=== PATIENT | female | born 2000 | race Caucasian/White ===

== ENCOUNTER → 2019-12-22 12:00 | Outpatient (CLI) | payer MEDICAID, SELFPAY ==
[2019-12-22 11:28] VITALS: BMI 26.2
[2019-12-22 12:33] LABS: Absolute Lymphocyte Count 1.17 X10^3/uL (0.83-4.51); Basophil# 0.02 X10^3/uL; Basophil% 0.2 % (0-1); Eosinophil# 0.07 X10^3/uL; Eosinophils% 0.8 % (0-5); Hematocrit 38.6 % (37-47); Lymphocyte # 1.17 X10^3/ul (4.0); Lymphocyte % 13.4 % (19-41); Mean Corp Hgb Conc 33.7 g/dL (32-36); Mean Corpuscular Volume 95.1 fL (81-99); Mean Platelet Vol. 9.8 fl (6.2-12.0); Monocyte# 0.48 X10^3/uL; Monocyte% 5.5 % (0-10); NRBC Flagged by Analyzer 0 % (0-5); Neutrophil # 6.95 X10^3/uL (2.7-7.7); Neutrophil % 79.9 % (47-70); Platelet Count 279 K/mm3 (150-450); RBC Distribution Width CV 11.9 % (11.6-14.6); RBC Distribution Width SD 41.1 fl (35.1-43.9); Red Blood Count 4.06 M/mm3 (4.2-5.4); White Blood Count 8.7 K/mm3 (4.4-11.0)
[2019-12-22 12:54] LABS: Amphetamine Urine VISTA NEGATIVE (<1000 ng/mL); Barbiturate Urine VISTA NEGATIVE (< 200 ng/mL); Benzodiazepine Urine VISTA NEGATIVE (< 200 ng/mL); Cocaine Urine VISTA NEGATIVE (< 300 ng/mL); Ecstacy Urine VISTA NEGATIVE (< 500 ng/mL); Methadone Urine VISTA NEGATIVE (< 300 ng/mL); PCP Urine VISTA NEGATIVE (< 25 ng/mL); THC Urine VISTA NEGATIVE (< 50 ng/mL); Vista UDS pH Range 7
[2019-12-22 13:44] LABS: HIV - WCH Non-Reactive (Nonreactive); Hepatitis B Surface Antigen Non-Reactive (Nonreactive); Hepatitis C Antibody Non-Reactive (Nonreactive); Rubella IgG 104.6 IU/mL
[2019-12-22 14:08] LABS: Chlamydia Trachomatis by PCR Negative (Negative); Neisserai gonorrhoeae by PCR Negative (Negative); Probe Check PASS; Sample Adequacy Control PASS; Specimen Processing Control PASS
[2019-12-24 02:04] LABS: Rapid Plasmin Reagin (RPR) NONREACTIVE (NONREACTIVE)
[2019-12-24 20:07] LABS: Chlamydia By Nucleic Acid AMP Negative (Negative)
[2019-12-24 20:40] LABS: Gonococcus By Nucleic Acid AMP Negative (Negative)
== END ==
PROVIDERS: PCP Family Medicine; Referring Provider Obstetrics & Gynecology; Visit Provider Obstetrics & Gynecology
DX: Z34.90 Encounter for supervision of normal pregnancy, unspecified, unspecified trimester (principal)
CPT/HCPCS: 36415; 80307; 85025; 86592; 86703; 86762; 86803; 86850; 86900; 86901; 87086; 87088; 87340; 87491; 87591

== ENCOUNTER → 2020-04-07 11:30 | Outpatient (CLI) | payer OTHER, MEDICAID, SELFPAY ==
[2020-04-07 11:27] VITALS: BMI 31.3
[2020-04-07 11:46] LABS: Absolute Lymphocyte Count 1.15 X10^3/uL (0.83-4.51); Absolute Neutrophil Count 8.6 X10^3/uL (2.0-7.7); Basophil# 0.03 X10^3/uL; Basophil% 0.3 % (0-1); Eosinophil# 0.08 X10^3/uL; Eosinophils% 0.8 % (0-5); Hematocrit 36.9 % (37-47); Hemoglobin 12.2 g/dL (12.0-15.0); Lymphocyte # 1.15 X10^3/ul (4.0); Mean Corp Hgb Conc 33.1 g/dL (32-36); Mean Corpuscular Hgb 32.4 pg (27.0-32.0); Mean Corpuscular Volume 97.9 fL (81-99); Mean Platelet Vol. 9.7 fl (6.2-12.0); Monocyte# 0.57 X10^3/uL; Monocyte% 5.4 % (0-10); NRBC Flagged by Analyzer 0 % (0-5); Neutrophil # 8.59 X10^3/uL (2.7-7.7); Neutrophil % 81.9 % (47-70); Platelet Count 259 K/mm3 (150-450); RBC Distribution Width CV 12.3 % (11.6-14.6); RBC Distribution Width SD 44.6 fl (35.1-43.9); Red Blood Count 3.77 M/mm3 (4.2-5.4); White Blood Count 10.5 K/mm3 (4.4-11.0)
[2020-04-07 12:18] LABS: Glucose Challenge Gest 1H 50g 97 mg/dL (70-140)
== END ==
PROVIDERS: PCP Family Medicine; Referring Provider Obstetrics & Gynecology; Visit Provider Obstetrics & Gynecology
DX: Z34.00 Encounter for supervision of normal first pregnancy, unspecified trimester (principal)
CPT/HCPCS: 36415; 82950; 85025

== ENCOUNTER → 2020-06-02 16:24 | Outpatient (CLI) | payer OTHER, MEDICAID, SELFPAY ==
[2020-06-02 14:44] VITALS: BMI 33.3
== END ==
PROVIDERS: PCP Family Medicine; Visit Provider Obstetrics & Gynecology
DX: Z34.00 Encounter for supervision of normal first pregnancy, unspecified trimester (principal)
CPT/HCPCS: 87081

== ENCOUNTER 2020-07-01 12:55 | Inpatient (IN) | payer OTHER, MEDICAID, SELFPAY ==
[2020-06-30 10:57] VITALS: BMI 34.7
[2020-07-01] VITALS (47 sets, daily range): BP systolic 96–151; BP diastolic 58–93; PULSE 80–126; RESP 16–18; TEMP 36.4–37.6; O2SAT 93–100; BMI 34.9
[2020-07-01] MEDS: Lactated Ringers 1,000 ML 50 ML IV (13:10)
[2020-07-01] MEDS: Lactated Ringers 500 ML 999 ML IV ×3 (13:15→21:39)
[2020-07-01 13:22] LABS: Absolute Lymphocyte Count 0.96 X10^3/uL (0.83-4.51); Absolute Neutrophil Count 16.4 X10^3/uL (2.0-7.7); Basophil# 0.05 X10^3/uL; Basophil% 0.3 % (0-1); Eosinophil# 0.01 X10^3/uL; Eosinophils% 0.1 % (0-5); Hematocrit 39.6 % (37-47); Hemoglobin 13.5 g/dL (12.0-15.0); Lymphocyte # 0.96 X10^3/ul (4.0); Lymphocyte % 5.3 % (19-41); Mean Corp Hgb Conc 34.1 g/dL (32-36); Mean Corpuscular Hgb 32.7 pg (27.0-32.0); Mean Corpuscular Volume 95.9 fL (81-99); Mean Platelet Vol. 10.9 fl (6.2-12.0); Monocyte# 0.71 X10^3/uL; Monocyte% 3.9 % (0-10); NRBC Flagged by Analyzer 0 % (0-5); Neutrophil # 16.44 X10^3/uL (2.7-7.7); Neutrophil % 89.9 % (47-70); Platelet Count 222 K/mm3 (150-450); RBC Distribution Width CV 12.9 % (11.6-14.6); RBC Distribution Width SD 44.4 fl (35.1-43.9); Red Blood Count 4.13 M/mm3 (4.2-5.4); White Blood Count 18.3 K/mm3 (4.4-11.0)
[2020-07-01] MEDS: fentaNYL-bupivacaine (epidural) 100 ML BAG EPIDURAL ×2 (14:55→19:57)
[2020-07-01] MEDS: Lactated Ringers 1,000 ML 200 ML IV (17:57)
--- NOTE | 2020-07-01 21:03 | HP.PCM_ITS ---
- Problem List (1) 35 weeks gestation of Status: Acute Comment: electronic covid test ordered 05/27/20 (scheduled or 06/23/20 at 1400) (2) History of tetanus, diphtheria, and acellular pertussis booster vaccination (Tdap) Status: Acute Comment: 04/07/20 (3) Marijuana use Status: Acute Comment: encouraged cessation, needs random tox(neg 12/21) (4) Status: Acute Qualifiers: Weeks of gestation: 39 weeks Qualified Code(s): Z3A.39 - 39 weeks gestation of Comment: genetic, carrier neg , and ntd screening discussed, low risk genetics, anatomy nl (5) Supervision of normal first Status: Acute Qualifiers: Trimester: third trimester Qualified Code(s): Z34.03 - Encounter for supervision of normal first , third trimester Comment: PRR RYAN: 06/26/[birth year] boy Jony F[facility]: [facility]) History and Physical Date of Admission: 07/01/20 Intake Vital Signs 06/30/20 Height 5 ft 7 in 06/30/20 Weight: 222 lb 06/30/20 BMI 34.7 06/30/20 BP 136/84 H Intake Visit Reasons: 40WK OB Iron Carrier Required: No Is patient in pain?: No Allergies No Known Allergies Allergy (Verified 06/30/20 10:57) Medications vitamin#30 30 mg iron-10 mg iron-folic acid 1 mg-omg3 capsule cap PO 12/22/19 [History Confirmed 06/30/20] Last Menstral Period: 09/27/19 Zika: Zika virus screening: Negative : No PFSH PFSH Medical History No significant medical problems (Acute) Surgical History No significant past surgical history (Acute) Family History Grandmother Breast cancer Social History (Updated 06/30/20 @ 11:[address] Heaven Will MD) household members: family housing: house current occupational status: employed current occupation: [employer] pets and animals: Yes Smoking Status: Never smoker second hand exposure: No alcohol intake: current substance use type: marijuana seatbelt use: always do you feel safe at home: Yes additional social history: Fiance: Max- lawn care Pregancy History 1 Elective abortions Hx Para Spontaneous abortions Hx # Term Pregnancies Ectopic pregnancies Hx # Pregnancies Multiple births # of living children HPI 40WK OB: Details: VALERIANO GUERRERO is a 19 year old @ 40w5d presents IAL 3 cm cervical change, regular ctx, painful. OB Visit RYAN Calculator Estimated Delivery Date Method Current WG Current Estimate 06/26/20 Ultrasound #1 40w 4d Other Estimates 07/03/20 LMP (Certain) 39w 4d Expected Delivery Route/Plan iol 41 Labor Preferences- CB/BF classes: encouraged labor support person: Maicol labor intervention preferences: open to standard interventions pain management options preferred: epidural cut cord/dad catch: cord : yes PP control planned: NFP discussed possible routes of delivery and associated risks: [] special requests: [] Specific Issue/Plans flu vaccine: given tdap vaccine: given rhogam: na LARC form signed: 04/21 movement and labor precautions reviewed. Problem list reviewed and updated with the most current plan of care details and appropriate orders placed. Relevant counseling for the gestational age provided. Continue routine care and follow up unless otherwise noted in visit notes/problem list details Initial Weight: Not Recorded Date EGA Weight BP Urine Prot Glucose FHR FuHt Pres Dilation Effaced St Visit Note 01/20/20 17w 3d 176 lb 126/74 143 MH-No VB, LOF. Occa nausea-managing. Some constipation-discussed. US ordered. Reviewed genetic and PNL. 02/17/20 21w 3d 182 lb 100/72 Negative Negative 145 GP - no cramping or bleeding. Anatomy scan normal. Ovarian cyst noted. 03/17/20 25w 4d 192 lb 122/86 145 SM- no vb lof good fm nor egulqr ctx 04/07/20 28w 4d 200 lb 100/80 145 28 Sm- no vb lof good fm no regular ctx cbcgct tdap 04/21/20 30w 4d 204 lb 2 oz 132/80 Negative Negative 140 30 GP - no LOF, VB, DFM, ctx. LARC form signed. 05/05/20 32w 4d 206 lb 136/72 Trace Negative 138 32 MH-No VB, LOF. Good FM. Denies concerns 05/19/20 34w 4d 211 lb 8 oz 126/86 Negative Negative 145 34 Cephalic GP - no LOF, VB, DFM, ctx. Discussed labor preferences. 06/02/20 36w 4d 213 lb 110/80 145 36 Cephalic 1 SM- no vb lof good fm no regular ctx gbs today 06/09/20 37w 4d 220 lb 122/80 Negative Negative 145 37 Cephalic 1 SM- no vb lof good fm no regular ctx 06/17/20 38w 5d 219 lb 4 oz 122/88 Negative Negative 125 38 Cephalic GP - no LOF, VB, DFM, ctx. Denies complaints. 06/23/20 39w 4d 223 lb 6 oz 138/86 Negative Negative 135 39 Cephalic 1 50 -3 GP - no LOF, VB, DFM, ctx . Discussed scheduling IOL at next visit if no labor. 06/30/20 40w 4d 222 lb 136/84 Negative Negative 135 39 Cephalic 1 60 -2 SM- no vb lof good fm no regular ctx plan IOL ACOG First Trimester First Trimester: Desire for , Alcohol, Tobacco Cessation, Illicit/Recreational Drug/Substance Use, Intimate Partner Violence, Barriers to care, Unstable Housing, Communication Barriers, Environmental/Work Hazards, Anticipated Course of Care, Toxoplasmosis Precations, Use of Any medications, Sexual activity, Exercise, Dental Care, Sauna/Hot tub use, Seat Belt use, Childbirth classes/Hospital facilities, , Travel, Indications for US and Screening for Aneuploidy Diagnostics Diagnostics Diagnostics Glucose 1 Hr 50 gm 97 mg/dL (70-140) 04/07/20 Hgb 12.2 g/dL (12.0-15.0) 04/07/20 Hct 36.9 % (37-47) L 04/07/20 Details: HIV: Urine Culture: Sequential Screen: NIPT Screen: ROS Const Reports system reviewed and no additional complaints, except as docu Card Reports system reviewed and no additional complaints, except as docu Resp Reports system reviewed and no additional complaints, except as docu GI Reports system reviewed and no additional complaints, except as docu, Reports nausea Reports system reviewed and no additional complaints, except as docu Musc Reports system reviewed and no additional complaints, except as docu Exam Const General: cooperative, healthy appearing, comfortable, anxious HENMT Head: normal to inspection Nose: external nose normal Face and sinus: normal facial exam Neck Neck: normal visual inspection, full ROM, no lymphadenopathy Thyroid: thyroid normal Chest Chest palpation & inspection: normal inspection of the chest Resp Effort & Inspection: normal respiratory effort GI Inspection: normal to inspection Palpation: soft, other (gravid uterus) Other: vertex and appropriate size for gestational age Other: Cervical Exam: 380/-1 Extrem General: pedal edema Results POC Urinalysis 2 Dip (Clinic) Office Urine Glucose Negative Last Edit by Amanda Pereira on 06/30/20 11:01 Office Urine Protein Negative Last Edit by Amanda Pereira on 06/30/20 11:01 Assessment & Plan Problems 1. Z34.90 genetic, carrier neg , and ntd screening discussed, low risk genetics, anatomy nl 2. Marijuana use F12.90 encouraged cessation, needs random tox(neg 12/21) 3. Supervision of normal first Z34.00 PRR RYAN: 06/26/20 boy Jony Fiance: Maicol [facility] [place]) 4. History of tetanus, diphtheria, and acellular pertussis booster vaccination (Tdap) Z92.29 04/07/20 5. 35 weeks gestation of Z3A.35 electronic covid test ordered 05/27/20 (scheduled or 06/23/20 at 1400) Plan Patient presents IAL, plan management for , Pit PRN Pain management: plans epidural. GBS negative. Management of any complications: none I have reviewed the [facility] and made any clinically relevant updates. Orders Orders: POC Urinalysis 2 Dip (Clinic) Today Coding Level of Care Code Off vis,est,level 4 Diagnoses Z34.90 Marijuana use F12.90 Supervision of normal first Z34.00 History of tetanus, diphtheria, and acellular pertussis booster vaccination (Tdap) Z92.29 35 weeks gestation of Z3A.35
[2020-07-01] MEDS: Terbutaline 1 MG/ML Vial 0.25 MG SC (22:17)
--- NOTE | 2020-07-01 22:24 | PCM.PN.BLA ---
Progress Note fht recurrent late and variable decelerations, initially resolved with position changes, now recurring, still 6 cm after fluid bolus, oxygen, no pitocin able to be given, and persistent cat [facility] with [facility]. discussed with patient and she agrees. STROKE Vital Signs/Narrative: Vital Signs Temp Pulse BP Pulse Ox 07/01/20 22:20 98 100/58 L 07/01/20 22:18 97 107/58 L 07/01/20 22:12 98.4 F 85 100 07/01/20 22:11 97 120/59 L 07/01/20 21:31 98.6 F 07/01/20 21:30 93 136/75 H 07/01/20 21:24 97 137/72 H 07/01/20 21:19 104 H 151/93 H 07/01/20 21:15 93 144/92 H 07/01/20 21:09 86 128/93 H 07/01/20 21:07 108 H 98 07/01/20 21:04 96 139/80 H 07/01/20 21:02 95 100 07/01/20 20:57 95 136/77 H 99 07/01/20 20:40 99.7 F H 90 135/84 H 07/01/20 20:03 98.2 F 90 134/91 H 07/01/20 19:13 98.8 F 82 121/81 H 100
[2020-07-01] MEDS: Sodium Citrate/Citric Acid 30 ML UDC PO (22:26)
[2020-07-01] MEDS: Cefazolin 2 GM in 0.9% Normal Saline 100 ML IV (22:26)
--- NOTE | 2020-07-01 22:37 | OP.PCM_ITS ---
Problem List (1) 35 weeks gestation of Status: Acute Comment: electronic covid test ordered 05/27/20 (scheduled or 06/23/20 at 1400) (2) History of tetanus, diphtheria, and acellular pertussis booster vaccination (Tdap) Status: Acute Comment: 04/07/20 (3) Marijuana use Status: Acute Comment: encouraged cessation, needs random tox(neg 12/21) (4) Status: Acute Qualifiers: Weeks of gestation: 39 weeks Qualified Code(s): Z3A.39 - 39 weeks gestation of Comment: genetic, carrier neg , and ntd screening discussed, low risk genetics, anatomy nl (5) Supervision of normal first Status: Acute Qualifiers: Trimester: third trimester Qualified Code(s): Z34.03 - Encounter for supervision of normal first , third trimester Comment: PRR RYAN: 06/26/20 bryce Borges Fiance: Maicol ([place]) (6) Non-reassuring heart rate with late deceleration Status: Acute Delivery Classification: KASIE service desk director: Erika Alberto Type of Anesthesia:: Epidural Date of Procedure: 07/01/20 Pre-Operative Diagnosis: recurrent decels 6 cm Post-Operative Diagnosis: same Indications for : Nonreassuring Status Description of Procedure: 19-year-old at 40 weeks 6 days presents in active labor proceeded to 6 cm of dilation and developed recurrent variable and late decelerations. The initially resolved with fluid bolus and position changes but then recurred and after reevaluation and patient noted to be remote from delivery and still 6 cm with persistent category 2 tracing for over an hour no decision was made to proceed with a repeat low transverse . Epidural was dosed and found to be adequate. The patient was placed in the dorsal supine position with leftward tilt. Patient was prepped and draped in the normal sterile fashion. Pfannenstiel skin incision was made with the scalpel and carried through to the underlying layer of fascia with the scalpel. Fascia was nicked in the midline and the incision extended laterally. The rectus bellies were dissected off superiorly and inferiorly with out complication both sharply and bluntly. The peritoneum was entered digitally. The incision was stretched and a low transverse uterine incision was made with the scalpel. The infant's head was delivered atraumatically followed by the anterior and posterior shoulders without complication the rest of the infant delivered. The cord was clamped and cut and the infant was handed off to awaiting nurse. The placenta was delivered spontaneously immediately following and was noted to be intact and have a three- vessel cord. The uterus was exteriorized cleared of all clots and debris, and the incision was closed in a double layer closure using #1 Monocryl. The ovaries and fallopian tubes were noted to be within normal limits. The uterus was returned to the maternal abdomen and gutters were cleared of all clots and debris. The peritoneum was closed with 3-0 Monocryl in a running fashion. Gloves were changed prior to fascial closure. Fascia was closed with 0 PDS in a running fashion. Subcutaneous tissue was copiously irrigated and the skin was closed with 3-0 Monocryl in a subcuticular fashion. Mepilex dressing was applied without complication. Patient was taken to recovery in stable condition. It was discussed with the patient that based on the clinical information obtained during this encounter, combined with her history, at this time I would recommend vaginal or cesareans for future deliveries if further pregnancies are desired. Amniotic Membrane Rupture Type: Artificial Amniotic Fluid Description: Clear Placenta Disposition: [facility] Drain: Camacho to straight drain Cord Entanglement: None Esitmated Blood Loss (ml): 600 Infant Gender: Male Delayed cord clamping: Yes Antibiotic Given: Ancef 2 grams IV x1, Zithromax 500 mg/5 mL X1 Pt instructed on risks of surgery: Bleeding, Anesthesia Risks, Infection, Injury to surrounding structure(s) including bowel and bladder Complications: None - Admit VTE Documentation VTE Present on Admission: No VTE Mechan Device Prophylaxis: SCD's Multi Select Codes - Urinary/Genital Urinary/Genital CPT Codes: 26327 delivery+ Care([facility])
[2020-07-01] MEDS: Oxytocin 30 units/NS 500 ml 30 UNITS/500 ML IV.SOLN 167 UNITS IV (23:48)
[2020-07-02] VITALS (17 sets, daily range): BP systolic 95–125; BP diastolic 44–77; PULSE 80–100; RESP 14–18; TEMP 36.6–37.1; O2SAT 96–98
[2020-07-02] MEDS: Acetaminophen 500 MG Tablet 1000 MG PO ×5 (00:10→23:32)
[2020-07-02] MEDS: 0.9% Saline Lock 10 ML Syringe IV (00:10)
[2020-07-02] MEDS: Ketorolac 30 MG/ML Syringe IV ×2 (00:10→06:24)
[2020-07-02] MEDS: Lactated Ringers 1,000 ML 100 ML IV (02:54)
[2020-07-02 06:33] LABS: Hematocrit 33.9 % (37-47); Hemoglobin 11.1 g/dL (12.0-15.0); Mean Corp Hgb Conc 32.7 g/dL (32-36); Mean Corpuscular Hgb 32.6 pg (27.0-32.0); Mean Corpuscular Volume 99.4 fL (81-99); Mean Platelet Vol. 10.8 fl (6.2-12.0); Platelet Count 212 K/mm3 (150-450); RBC Distribution Width CV 12.9 % (11.6-14.6); RBC Distribution Width SD 46.7 fl (35.1-43.9); Red Blood Count 3.41 M/mm3 (4.2-5.4); White Blood Count 18.5 K/mm3 (4.4-11.0)
--- NOTE | 2020-07-02 07:23 | PCM.PN.OB ---
Patient Problems: Active and Suspected Problems (Last Reviewed 06/30/20 @ 10:57 by Amanda Pereira) Non-reassuring heart rate with late deceleration (Acute) 35 weeks gestation of (Acute) electronic covid test ordered 05/27/20 (scheduled or 06/23/20 at 1400) History of tetanus, diphtheria, and acellular pertussis booster vaccination (Tdap) (Acute) 04/07/20 Supervision of normal first (Acute) PRR RYAN: 06/26/20 boy Jony Fiance: Max ([place]) Marijuana use (Acute) encouraged cessation, needs random tox(neg 12/21) (Acute) genetic, carrier neg , and ntd screening discussed, low risk genetics, anatomy nl Subjective: Patient doing well without complaints. Tolerating PO. Ambulating and voiding without difficulty. feeding well. Denies chest pain, shortness of breath, calf pain/swelling, fevers, chills, lightheadedness. - Physical Exam Vitals/I&O's: Vital Signs Temp Pulse Resp BP Pulse Ox 98.8 F 83 16 114/49 L 96 07/02/20 05:40 07/02/20 05:40 07/02/20 05:40 07/02/20 05:40 07/02/20 06:14 Oxygen Delivery Method Room Air Weight: 222 lb 12.8 oz Body Mass Index (BMI) 34.9 Intake and Output for Last 24 Hours 06/30/20 07/01/20 07/02/20 23:59 23:59 23:59 Intake Total 3017.84 / 3017.84 955 / 955 Output Total 1400 / 1400 900 / 900 Balance 1617.84 / 1617.84 55 / 55 General: Alert, Oriented x3 Microbiology Past 72 Hours 07/01/20 11:30 Mucosa - Nose SARS-CoV-2 Antigen (Rapid) - Final Laboratory Results 07/01/20 13:10: WBC 18.3 H, RBC 4.13 L, Hgb 13.5, Hct 39.6, MCV 95.9, MCH 32.7 H, MCHC 34.1, RDW Std Deviation 44.4 H, RDW Coeff of Janay 12.9, Plt Count 222, MPV 10.9, Immature Gran % (Auto) 0.500, Neut % (Auto) 89.9 H, Lymph % (Auto) 5.3 L, Jones % (Auto) 3.9, Eos % (Auto) 0.1, Baso % (Auto) 0.3, Absolute Neuts (auto) 16.4 H, Absolute Lymphs (auto) 0.96, Nucleated RBC % 0 07/01/20 13:10: Blood Type A POSITIVE, Antibody Screen NEGATIVE 07/02/20 06:20: WBC 18.5 H, RBC 3.41 L, Hgb 11.1 L, Hct 33.9 L, MCV 99.4 H, MCH 32.6 H, MCHC 32.7, RDW Std Deviation 46.7 H, RDW Coeff of Janay 12.9, Plt Count 212, MPV 10.8 Current Medications Acetaminophen (Acetaminophen 500 Mg Tablet) 1,000 mg PO Q6 [facility] Last Admin: 07/02/20 06:24 Dose: 1,000 mg Documented by: Bisacodyl (Bisacodyl 10 Mg Suppository) 10 mg RC UD PRN PRN Reason: If no BM Diphenhydramine HCl (Diphenhydramine 25 Mg Capsule) 25 mg PO Q6H PRN PRN PRN Reason: ITCHING Stop: 07/02/20 23:40 Hydrocortisone (Hydrocortisone 2.5% Crm) 1 applic TOPICAL TID PRN PRN; Protocol PRN Reason: Discomfort Lactated Ringer's () 1,000 mls @ 100 mls/hr IV .Q10H [facility] Last Admin: 07/02/20 02:54 Dose: 100 mls/hr Documented by: Ketorolac Tromethamine (Ketorolac 30 Mg/Ml Syringe) 30 mg IV Q6H SEN Stop: 07/02/20 18:01 Last Admin: 07/02/20 06:24 Dose: 30 mg Documented by: Methylergonovine Maleate (Methylergonovine 0.2 Mg/Ml Ampul) 0.2 mg IM X1 PRN PRN Reason: Uterine Atony Nalbuphine HCl (Nalbuphine 10 Mg/Ml Ampul) 5 mg IV Q3H PRN PRN PRN Reason: ITCHING Stop: 07/02/20 23:40 Naloxone HCl (Naloxone 0.4 Mg/Ml Syringe) 0.02 mg IV Q1M PRN PRN Reason: RR <10 and pt unresponsive Naproxen (Naproxen 250 Mg Tablet) 500 mg PO Q8 SEN Ondansetron HCl (Ondansetron 4 Mg/2 Ml Vial) 4 mg IV Q4H PRN PRN PRN Reason: Nausea Oxycodone HCl (Oxycodone 5 Mg Tablet) 5 - 10 mg PO Q4H PRN PRN PRN Reason: Pain Score 4-10 Prochlorperazine Edisylate (Prochlorperazine 10 Mg/2 Ml Vial) 10 mg IV Q6H PRN PRN PRN Reason: NAUSEA Senna/Docusate Sodium (Senna/Docusate Sodium 1 Tablet) 0 tablet PO DAILY SEN Simethicone (Simethicone 80 Mg Tablet) 80 mg PO PCHS PRN PRN Reason: Indigestion/stomach pain Sodium Chloride (0.9% Saline Lock 10 Ml Syringe) 5 - 15 ml IV UD PRN PRN Reason: SALINE FLUSH Last Admin: 07/02/20 00:10 Dose: 10 ml Documented by: Medical Necessity - Tobacco Use Smoking Status: Former smoker Assessment/Plan All Active Problems (Last Reviewed 06/30/20 @ 10:57 by Amanda Pereira) Non-reassuring heart rate with late deceleration (Acute) 35 weeks gestation of (Acute) History of tetanus, diphtheria, and acellular pertussis booster vaccination (Tdap) (Acute) Supervision of normal first (Acute) Marijuana use (Acute) (Acute) s/p LTCS PPD # 1 1. routine post care 2. breast feeding- support given 3. rh positive 4. rubella immune
--- NOTE | 2020-07-02 07:27 | DCINST_ITS ---
Discharge Diet: No Restrictions Discharge Activity: May Not Drive - for 2 weeks, May not drive while taking narcotic pain medications., May Shower, May Take a Tub Bath - in 7 days May resume sexual activity in: 4-6 weeks Lifting Restrictions: 20 pounds Additional Activity Instructions:: Nothing in the vagina for 4-6 weeks. You may return to work/school in 6 weeks. Call your doctor if your incision/area has: Continuous Slow Oozing, Sudden Increased Bleeding, Increased Pain/ Swelling, Increased Redness, Foul Smelling Discharge Call your doctor if you observe: Fever of 101 or Higher, Using more than one pad per hour - for 2 hours Suture Line Care: Avoid Pulling/Pushing, Avoid Pinching/Bending Cleanse incision/area with: Keep Dressing Clean & Dry Additional Instructions: If you experience any of the following, contact your healthcare provider. * Bleeding that soaks a pad every hour for 2 hours * Fever 100.4 or higher * Unrelieved incision or abdominal pain * Swelling, redness, discharge or bleeding from your incision or episiotomy site * Your incision begins to separate * Problems urinating (including inability to urinate or burning while urinating). * Visual changes * Severe headache * Flu-like symptoms * Pain or redness in one of both of your breasts * Pain, warmth, tenderness or swelling in your legs, especially the calf area * Frequent nausea and vomiting * Symptoms of depression or anxiety If you experience any of the following, call 911 or go to the nearest Emergency Room. * Chest pain * Problems breathing * Seizure activity * Partial or complete paralysis of a body part, slurred speech, weakness or drooping of the face, or a sudden inability to walk or hold your balance Allergies/Adverse Reactions: Allergies No Known Allergies Allergy (Verified 07/01/20 08:50) Medications to take at Discharge vitamin#30 30 mg iron-10 mg iron-folic acid 1 mg-omg3 capsule 30 cap PO DAILY 12/22/19 Naproxen [Naprosyn] 250 - 500 mg PO Q8H PRN PRN #30 tab 07/02/20 Oxycodone HCl/Acetaminophen [Percocet 5-325] 1 - 2 tablet PO Q6H PRN PRN 7 Days #15 tablet 07/02/20 The following prescriptions were given: Naproxen [Naprosyn] 250 - 500 mg PO Q8H PRN PRN #30 tab PRN Reason: MILD PAIN Transmission Status: Pending to [facility] Oxycodone HCl/Acetaminophen [Percocet 5-325] 1 - 2 tablet PO Q6H PRN PRN 7 Days #15 tablet PRN Reason: Pain Transmission Status: Sent to [facility] Follow-Up: Call to make an appointment with your doctor for an incision check in 1-2 weeks. You will also need a 6 week post- follow up appointment. Test results from this visit will be discussed in further detail at your follow- up appointment, if applicable. Please Follow Up With: Heaven Will MD - Call to make an appointment for an incision check in 1-2 [phone] When: You will need a post- check in 6 weeks. Primary Care Physician: Kuldeep Ngo MD [Primary Care Provider] -
--- NOTE | 2020-07-02 09:57 | CASEMGMT ---
Addendum entered by Marva Laird 07/11/20 08:22: Meconium was negative. TAYO Villanueva Original Note: Social Work Assessment Labor and Delivery Unit Date/Time of referral: 07/02/20, 9:45am Referred by: Dr. Will Date/Time of Intervention: 07/02/20, 9:45am Reason for referral: History of substance use, marijuana prepregnancy, peds screening infant History obtained from: MOB and FOB Household composition: MOB, FOB and now baby Jony, MOB and FOB together 3 years. This is their first child and first child together. Patient's parent/guardian status: MOB and FOB not , MOB guardian Medical History: MOB, none significant. Baby: Born 07/01/20, 10:54pm, Apgars 8 and 9 at 1 and 5 minutes respectively, 3.365 kg Educational History: MOB finished high school, FOB almost finished senior year Financial Status: They state no financial concerns. FOB has his own [employer]. 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 Supplies: They have all needed supplies including car seat, crib, bassinet, clothing, diapers, bottles, access to formula if needed. MOB plans to breastfeed. Childcare/Caregivers: MOB's mother is able to help as needed. Transportation: They have a vehicle. Programs/Agencies involved: None Children's Services/Legal Issues: None Behavioral Health Issues: Mental Health, MOB and FOB deny any history of mental health difficulties. Substance abuse: FOB denies. MOB confirms did use marijuana but has not used since , plans to continue to abstain from marijuana use. Tox screen negative in November. MOB denies any other substance abuse. Meconium pending. Family/Social Stressors: None identified Support Systems: MOB's mother, FOB's brother and sister in law Depression and Anxiety/Shaken baby/Safe Sleeping: SW gave information on all of these topics and reviewed w/MOB and FOB. SW also provided list of resources in [facility], and number to Counseling Center with 24 hour hotline. Assessment: MOB and FOB open to speaking w/SW, appropriate. Baby sleeping in bassinet at time of assessment. No concerns at this time. Plan: Baby home w/MOB and FOB. SW will watch for results of meconium, otherwise no concerns at this time. TAYO Villanueva
[2020-07-02] MEDS: Senna/Docusate Sodium 1 Tablet PO (12:04)
[2020-07-02] MEDS: Ketorolac 10 MG Tablet PO ×2 (12:11→17:37)
[2020-07-02] MEDS: Naproxen 250 MG Tablet 500 MG PO (23:32)
[2020-07-03 02:00] VITALS: BP 120/71; PULSE 91; RESP 16; TEMP 37.1
[2020-07-03] MEDS: Naproxen 250 MG Tablet 500 MG PO (05:42)
[2020-07-03] MEDS: Acetaminophen 500 MG Tablet 1000 MG PO (05:43)
[2020-07-03 08:00] VITALS: BP 106/55; PULSE 72; RESP 16; TEMP 36.4
--- NOTE | 2020-07-03 08:43 | PN.OBGYN_ITS ---
Patient Problems: Active and Suspected Problems (Last Reviewed 06/30/20 @ 10:57 by Amanda Pereira) Non-reassuring heart rate with late deceleration (Acute) 35 weeks gestation of (Acute) electronic covid test ordered 05/27/20 (scheduled or 06/23/20 at 1400) History of tetanus, diphtheria, and acellular pertussis booster vaccination (Tdap) (Acute) 04/07/20 Supervision of normal first (Acute) PRR RYAN: 06/26/20 boy Jony Fiance: Maicol (erwin) Marijuana use (Acute) encouraged cessation, needs random tox(neg 12/21) (Acute) genetic, carrier neg , and ntd screening discussed, low risk genetics, anatomy nl Subjective: Patient doing well without complaints. Tolerating PO. Ambulating and voiding without difficulty. feeding well. Denies chest pain, shortness of breath, calf pain/swelling, fevers, chills, lightheadedness. - Physical Exam Vitals/I&O's: Vital Signs Temp Pulse Resp BP Pulse Ox 97.5 F L 72 16 106/55 L 98 07/03/20 08:00 07/03/20 08:00 07/03/20 08:00 07/03/20 08:00 07/02/20 09:57 Oxygen Delivery Method Room Air Weight: 222 lb 12.8 oz Body Mass Index (BMI) 34.9 Intake and Output for Last 24 Hours 07/01/20 07/02/20 07/03/20 23:59 23:59 23:59 Intake Total 3017.84 / 3017.84 1465 / 1465 Output Total 1400 / 1400 1125 / 1125 Balance 1617.84 / 1617.84 340 / 340 General: Alert, Oriented x3, Cooperative Microbiology Past 72 Hours 07/01/20 11:30 Mucosa - Nose SARS-CoV-2 Antigen (Rapid) - Final Current Medications Acetaminophen (Acetaminophen 500 Mg Tablet) 1,000 mg PO Q6 SEN Last Admin: 07/03/20 05:43 Dose: 1,000 mg Documented by: Bisacodyl (Bisacodyl 10 Mg Suppository) 10 mg RC UD PRN PRN Reason: If no BM Hydrocortisone (Hydrocortisone 2.5% Crm) 1 applic TOPICAL TID PRN PRN; Protocol PRN Reason: Discomfort Lactated Ringer's () 1,000 mls @ 100 mls/hr IV .Q10H [facility] Last Admin: 07/03/20 06:34 Dose: Not Given Documented by: Methylergonovine Maleate (Methylergonovine 0.2 Mg/Ml Ampul) 0.2 mg IM X1 PRN PRN Reason: Uterine Atony Naloxone HCl (Naloxone 0.4 Mg/Ml Syringe) 0.02 mg IV Q1M PRN PRN Reason: RR <10 and pt unresponsive Naproxen (Naproxen 250 Mg Tablet) 500 mg PO Q8 [facility] Last Admin: 07/03/20 05:42 Dose: 500 mg Documented by: Ondansetron HCl (Ondansetron 4 Mg/2 Ml Vial) 4 mg IV Q4H PRN PRN PRN Reason: Nausea Oxycodone HCl (Oxycodone 5 Mg Tablet) 5 - 10 mg PO Q4H PRN PRN PRN Reason: Pain Score 4-10 Prochlorperazine Edisylate (Prochlorperazine 10 Mg/2 Ml Vial) 10 mg IV Q6H PRN PRN PRN Reason: NAUSEA Senna/Docusate Sodium (Senna/Docusate Sodium 1 Tablet) 0 tablet PO DAILY [facility] Last Admin: 07/02/20 12:04 Dose: 2 tablet Documented by: Simethicone (Simethicone 80 Mg Tablet) 80 mg PO [facility]S PRN PRN Reason: Indigestion/stomach pain Sodium Chloride (0.9% Saline Lock 10 Ml Syringe) 5 - 15 ml IV UD PRN PRN Reason: SALINE FLUSH Last Admin: 07/02/20 00:10 Dose: 10 ml Documented by: Medical Necessity - Tobacco Use Smoking Status: Former smoker Assessment/Plan All Active Problems (Last Reviewed 06/30/20 @ 10:57 by Amanda Pereira) Non-reassuring heart rate with late deceleration (Acute) 35 weeks gestation of (Acute) History of tetanus, diphtheria, and acellular pertussis booster vaccination (Tdap) (Acute) Supervision of normal first (Acute) Marijuana use (Acute) (Acute) s/p LTCS PPD # 2 1. routine post care 2. breast feeding- support given 3. rh positive 4. rubella immune
== END 2020-07-03 11:10 | disposition home or self-care (01) | DRG 540 ==
LOC: WPOUT 13:01 → WP 13:43
PROVIDERS: Admitting Provider Obstetrics & Gynecology; PCP Family Medicine; Visit Provider Obstetrics & Gynecology
DX: O76 Abnormality in fetal heart rate and rhythm complicating labor and delivery (principal); Z37.0 Single live birth; Z3A.40 40 weeks gestation of pregnancy; O99.324 Drug use complicating childbirth; F12.90 Cannabis use, unspecified, uncomplicated; Z87.891 Personal history of nicotine dependence
CPT/HCPCS: 59025; 59050; 85025; 85027; 86850; 86900; 86901; 87426; 99218; 99251; J7120; A4216; G0378; G0463; J2405

== ENCOUNTER → 2021-11-30 | Outpatient (CLI) | payer MEDICAID, SELFPAY ==
[2021-11-30 16:06] LABS: Amphetamine Urine VISTA NEGATIVE (<1000 ng/mL); Barbiturate Urine VISTA NEGATIVE (< 200 ng/mL); Benzodiazepine Urine VISTA NEGATIVE (< 200 ng/mL); Cocaine Urine VISTA NEGATIVE (< 300 ng/mL); Ecstacy Urine VISTA NEGATIVE (< 500 ng/mL); Methadone Urine VISTA NEGATIVE (< 300 ng/mL); PCP Urine VISTA NEGATIVE (< 25 ng/mL); THC Urine VISTA NEGATIVE (< 50 ng/mL); Vista UDS pH Range 8
[2021-12-04 22:06] LABS: Chlamydia By Nucleic Acid AMP Negative (Negative)
[2021-12-05 13:35] LABS: Gonococcus By Nucleic Acid AMP Negative (Negative)
[2021-12-06 16:34] LABS: HPV Reflexed? NOT INDICATED
== END | disposition home or self-care (01) ==
LOC: LABSPEC 15:00
PROVIDERS: PCP Family Medicine; Referring Provider Obstetrics & Gynecology; Visit Provider Obstetrics & Gynecology
DX: Z34.91 Encounter for supervision of normal pregnancy, unspecified, first trimester (principal)
CPT/HCPCS: 80307; 87086; 87491; 87591; 88175; G0145

== ENCOUNTER → 2021-12-12 | Outpatient (CLI) | payer MEDICAID, SELFPAY ==
[2021-12-12 14:06] LABS: Absolute Lymphocyte Count 0.67 X10^3/uL (0.83-4.51); Absolute Neutrophil Count 6.5 X10^3/uL (2.0-7.7); Basophil# 0.04 X10^3/uL; Basophil% 0.5 % (0-1); Eosinophil# 0.11 X10^3/uL; Eosinophils% 1.4 % (0-5); Hematocrit 38.7 % (37-47); Hemoglobin 13.2 g/dL (12.0-15.0); Lymphocyte # 0.67 X10^3/ul (0.83-4.51); Lymphocyte % 8.3 % (19-41); Mean Corp Hgb Conc 34.1 g/dL (32-36); Mean Corpuscular Hgb 31.7 pg (27.0-32.0); Mean Corpuscular Volume 92.8 fL (81-99); Mean Platelet Vol. 9.3 fl (6.2-12.0); Monocyte# 0.78 X10^3/uL; Monocyte% 9.6 % (0-10); NRBC Flagged by Analyzer 0 % (0-5); Neutrophil # 6.48 X10^3/uL (2.7-7.7); Neutrophil % 79.8 % (47-70); Platelet Count 277 K/mm3 (150-450); RBC Distribution Width CV 11.9 % (11.6-14.6); RBC Distribution Width SD 40.6 fl (35.1-43.9); Red Blood Count 4.17 M/mm3 (4.2-5.4); White Blood Count 8.1 K/mm3 (4.4-11.0)
[2021-12-12 14:45] LABS: NATERA MAILED SPECIMEN
[2021-12-12 15:21] LABS: HIV - WCH Non-Reactive (Nonreactive); Hepatitis B Surface Antigen Non-Reactive (Nonreactive); Hepatitis C Antibody Non-Reactive (Nonreactive); Rubella IgG Reactive (Nonreactive); Syphilis Antibodies Non-reactive
== END | disposition home or self-care (01) ==
LOC: PAVLAB 13:28
PROVIDERS: Obstetrics & Gynecology; PCP Family Medicine; Referring Provider Obstetrics & Gynecology; Visit Provider Obstetrics & Gynecology
DX: Z34.91 Encounter for supervision of normal pregnancy, unspecified, first trimester (principal)
CPT/HCPCS: 36415; 85025; 86703; 86762; 86780; 86803; 86850; 86900; 86901; 87340

== ENCOUNTER → 2022-04-16 | Outpatient (CLI) | payer MEDICAID, SELFPAY ==
[2022-04-16 13:49] LABS: Absolute Neutrophil Count 8.4 X10^3/uL (2.0-7.7); Basophil# 0.05 X10^3/uL; Basophil% 0.5 % (0-1); Eosinophil# 0.08 X10^3/uL; Eosinophils% 0.8 % (0-5); Hemoglobin 12.4 g/dL (12.0-15.0); Lymphocyte % 13.2 % (19-41); Mean Corp Hgb Conc 32.6 g/dL (32-36); Mean Corpuscular Hgb 31.5 pg (27.0-32.0); Mean Corpuscular Volume 96.4 fL (81-99); Mean Platelet Vol. 10.6 fl (6.2-12.0); Monocyte# 0.62 X10^3/uL; Monocyte% 5.8 % (0-10); NRBC Flagged by Analyzer 0 % (0-5); Neutrophil # 8.41 X10^3/uL (2.7-7.7); Platelet Count 299 K/mm3 (150-450); RBC Distribution Width CV 12.2 % (11.6-14.6); RBC Distribution Width SD 43.1 fl (35.1-43.9); Red Blood Count 3.94 M/mm3 (4.2-5.4); White Blood Count 10.6 K/mm3 (4.4-11.0)
[2022-04-16 13:56] LABS: Glucose Challenge Gest 1H 50g 86 mg/dL (70-140)
[2022-04-16 14:29] LABS: HIV - WCH Non-Reactive (Nonreactive); Syphilis Antibodies Non-reactive
== END | disposition home or self-care (01) ==
PROVIDERS: Registered Nurse; PCP Family Medicine; Referring Provider Obstetrics & Gynecology; Visit Provider Obstetrics & Gynecology
DX: O09.90 Supervision of high risk pregnancy, unspecified, unspecified trimester (principal)
CPT/HCPCS: 36415; 82950; 85025; 86703; 86780

== ENCOUNTER 2022-05-29 16:45 | Outpatient (CLI) | payer MEDICAID, SELFPAY ==
[2022-05-29 17:09] VITALS: BP 133/77; PULSE 110; TEMP 36.8
[2022-05-29 17:10] VITALS: PULSE 105; O2SAT 98; BMI 35.0
[2022-05-29] MEDS: Acetaminophen 500 MG Tablet 1000 MG PO (17:27)
[2022-05-29 17:54] LABS: Hematocrit 35.6 % (37-47); Hemoglobin 11.6 g/dL (12.0-15.0); Mean Corp Hgb Conc 32.6 g/dL (32-36); Mean Corpuscular Hgb 31.3 pg (27.0-32.0); Mean Platelet Vol. 10.5 fl (6.2-12.0); Platelet Count 252 K/mm3 (150-450); RBC Distribution Width CV 12.2 % (11.6-14.6); RBC Distribution Width SD 42.2 fl (35.1-43.9); Red Blood Count 3.71 M/mm3 (4.2-5.4); White Blood Count 12.4 K/mm3 (4.4-11.0)
[2022-05-29 18:08] LABS: AST(SGOT) 17 U/L (15-37); Alanine Aminotransfer ALT/SGPT 15 U/L (13-56); Creatinine, Serum 0.68 mg/dL (0.55-1.02); EST Glomerular Filtration Rate 115 mL/min (>60); Est Glom Filt Rate - Afr Amer 139 mL/min (>60); Estimated Creatinine Clearance 126.19 ml/min; Uric Acid 4.1 mg/dL (2.6-6.0)
[2022-05-29 18:11] LABS: Protein, Urine (Random) < 6.0 mg/dL (<11.9)
[2022-05-29] MEDS: Lactated Ringers 1,000 ML 999 ML IV (18:25)
[2022-05-29 18:29] VITALS: BP 128/57; PULSE 86
--- NOTE | 2022-05-29 20:09 | OB.TRI.HP_ITS ---
HPI - General General Date of Admission: 05/29/22 HPI Narrative VALERIANO JEAN, is a 21 y/o @ 34 weeks 2 days who presents to L&D with a headache that started yesterday. She denies visual changes, ruq pain, or swelling but does feel dizzy. Maternal Data Information RYAN Calculator Estimated Delivery Date Method Current WG Current Estimate 07/08/22 LMP (Certain) 34w 2d PFSH PFSH Medical History No significant medical problems Home Medications vitamin#30 30 mg iron-10 mg iron-folic acid 1 mg-omg3 capsule 30 cap PO DAILY 12/22/19 [History Last Taken 03/26/22] Allergy/AdvReac Type Severity Reaction Status Date / Time No Known Allergies Allergy Verified 05/14/22 11:43 Family History Grandmother Breast cancer Surgical History Hx of section Social History adopted: No household members: significant other and children housing: house number of children: 2 current occupational status: unemployed 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 current occupational exposures/hazards: No pets and animals: No history of recent travel: No sexually active: Yes Smoking Status: Former smoker second hand exposure: No alcohol intake: former details: socially well-balanced diet: about half the time caffeine: No what type of physical activity do you participate in: none kamran/muslim: None seatbelt use: always do you feel safe at home: Yes 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 Date Name GA/Weeks Outcome Route Bth Weight Infant Gen Labor Lgth Anesthesia Del Locatn Provider FOB 07/01/20 Jony 41 live - full term Male ep idural [facility] Delivery Date: 07/01/20 Last Updated by: Amanda Pereira [facility] at 6cm Visit Details Expected Delivery Route/Plan RLTCS Plans Covid status: discussed Flu vaccine: recommended Tdap vaccine: given Rhogam: na LARC form signed: declined movement and labor precautions reviewed. Problem list reviewed and updated with the most current plan of care details and appropriate orders placed. Relevant counseling for the gestational age provided. Continue routine care and follow up unless otherwise noted in visit notes/problem list details OB Flowsheet Initial Weight: Not Recorded Date -?-?-?-?-?-?-?-?-?-?-?-?- EGA Weight BP Urine Prot -?-?-?-?-?-?-?-?-?-?-?-?- Glucose FHR FuHt Pres Dilation -?-?-?-?-?-?-?-?-?-?-?-?- Effaced St Visit Note 11/30/21 -?-?-?--?-?-?-?-?-?-?-?-?- 8w 4d 160 lb 112/68 -?-?-?-?-?-?-?-?-?-?-?-?- 160 -?-?-?-?-?-?-?-?-?-?-?-?- Sm- Crl cons 2 c m 12/27/21 -?-?-?-?-?-?-?-?-?-?-?-?- 12w 3d 163 lb 4 oz 116/78 -?-?-?-?-?-?-?-?-?-?-?-?- 160 -?-?-?-?-?-?-?-?-?-?-?-?- LC- no vb/crampi ng. doing well. declines AFP. ultrasound ordered 01/23/22 -?-?-?-?-?-?-?-?-?-?-?-?- 16w 2d 174 lb 7 oz 174 lb 7 oz 118/72 118/72 Negative -?-?-?-?-?-?-?-?-?-?-?-?- Negative 148 -?-?-?-?-?-?-?-?-?-?-?-?- MH-No VB, gauravmpkhadar ng. Feels well. 02/21/22 -?-?-?-?-?-?-?-?-?-?-?-?- 20w 3d 187 lb 129/73 Negative -?-?-?-?-?-?-?-?-?-?-?-?- Negative 135 20 -?-?-?-?-?-?-?-?-?-?-?-?- JV- anatomy ultr asound reviewed. has a 5 cm simple ovarian cyst. luzma will remove at time of section. pt wants to have rpt section on the saturday of her 39 week. 03/21/22 -?-?-?-?-?-?-?-?-?-?-?-?- 24w 3d 196 lb 2 oz 121/78 Nega tive -?-?-?-?-?-?-?-?-?-?-?-?- Negative 146 -?-?-?-?-?-?-?-?-?-?-?-?- MH-No vB, LOF. G ood FM. Denies concerns 04/16/22 -?-?-?-?-?-?-?-?-?-?-?-?- 28w 1d 212 lb 117/66 -?-?-?-?-?-?-?-?-?-?-?-?- 145 28 -?-?-?-?-?-?-?-?-?-?-?-?- SM- no vb lof go od fm no regular ctx cbc gct today, cs scheduled 04/30/22 -?-?-?-?-?-?-?-?-?-?-?-?- 30w 1d 215 lb 8 oz 108/72 Nega tive -?-?-?-?-?-?-?-?-?-?-?-?- Negative 140 31 -?-?-?-?-?-?-?-?-?-?-?-?- SM- no vb lof go od fm n oregular ctx 05/14/22 -?-?-?-?-?-?-?-?-?-?-?-?- 32w 1d 226 lb 117/88 Negative -?-?-?-?-?-?-?-?-?-?-?-?- Negative 130 33 -?-?-?-?-?-?-?-?-?-?-?-?- SM- no vb lof go od fm n oregular ctx ROS Constitutional Constitutional: Reports systems reviewed and no addt'l complaints, except as documented Gastrointestinal Gastrointestinal: Denies bloating, constipation, cramping, diarrhea, nausea or vomiting Genitourinary Genitourinary: Reports other Details: Denies vaginal odor, vaginal bleeding, or vaginal discharge ; Denies difficulty urinating or flank pain Physical Exam Const alert, oriented x3 and no apparent distress HEENT normocephalic Eyes General Eye: normal appearance of both eyes Neck full ROM Resp normal respiratory effort and normal air movement no CVA tenderness Extremity normal to inspection General Extremity: edema bilateral (trace ) NST FHR Rate Baby A Baseline: 140 Variability:: Moderate Accelerations:: 15 x 15 Decelerations:: None NST Reactive:: Yes FHR Category:: Category I Assessment & Plan (1) Headache in , antepartum: PLAN: pt was given IV fluid bolus, tylenol, and PIH labs were found to be normal. pt dc'd to home to rest and report to us if headache returns or gets worse. (2) Ovarian cyst: COMMENT: 5 x 5 x 4.5 cm on anatomy scan. pt plans for rpt section, will address at that time. torsion precautions discussed. (3) History of delivery: COMMENT: NRFHTs at 6 cm. RLTCS and ovarian cystectomy scheduled 07/02 @ 7:10 with (4) Supervision of high risk , antepartum: COMMENT: [id number] RYAN 07/08/22 girl Joan Milian (NISHI Christianson) (5) : QUALIFIERS: Weeks of gestation: 32 weeks Qualified Code(s): Z3A.32 - 32 weeks gestation of COMMENT: NIPT low risk, carrier neg. . nl anatomy (6) Marijuana use: COMMENT: encouraged cessation, needs random tox(neg 12/21), 11/21/21 Pt states she is no longer smoking marijuana. Charges/Coding Multi Select Codes Visit Charges Office Visit/Consults: 52920 OV L3 Est Urinary/Genital Urinary/Genital CPT Codes: 43926-46 non-stress test Interp
== END 2022-05-29 18:35 | disposition home or self-care (01) ==
LOC: WPOUT 16:51 → WP 16:59
PROVIDERS: PCP Family Medicine; Visit Provider Obstetrics & Gynecology
DX: O99.891 Other specified diseases and conditions complicating pregnancy (principal); F12.99 Cannabis use, unspecified with unspecified cannabis-induced disorder; R51.9 Headache, unspecified; Z3A.32 32 weeks gestation of pregnancy; O34.83 Maternal care for other abnormalities of pelvic organs, third trimester; N83.209 Unspecified ovarian cyst, unspecified side; O99.323 Drug use complicating pregnancy, third trimester
CPT/HCPCS: 96374; 36415; 59025; 59050; 82565; 82570; 84156; 84450; 84460; 84550; 85027; 99221; G0378

== ENCOUNTER → 2022-06-11 | Outpatient (CLI) | payer OTHER, SELFPAY | END | disposition home or self-care (01) | LOC: LABSPEC 12:07 | PROVIDERS: PCP Family Medicine; Referring Provider Obstetrics & Gynecology; Visit Provider Obstetrics & Gynecology | DX: O09.90 Supervision of high risk pregnancy, unspecified, unspecified trimester (principal); Z3A.00 Weeks of gestation of pregnancy not specified | CPT/HCPCS: 87081 ==

== ENCOUNTER 2022-07-02 04:55 | Inpatient (IN) | payer MEDICAID, SELFPAY ==
[2022-07-02] VITALS (17 sets, daily range): BP systolic 94–129; BP diastolic 41–76; PULSE 70–96; RESP 13–17; TEMP 36.3–36.9; O2SAT 96–100; BMI 36.8
--- NOTE | 2022-07-02 01:33 | HP.PCM_ITS ---
History and Physical Date of Admission: 07/02/22 MR#: [id number] Acct: [id number] Name:VALERIANO HIRSCH Rep #: [id number] : 2000 ? ? Provider: Dr. Heaven Will MD Age/Sex:? 21/F ? ? Location: [facility] [place] Status: Signed Intake Vital Signs ? 04/16/2311:04 06/25/2309:58 06/25/2310:01 Height 5 ft 4 in 5 ft 7 in 5 ft 7 in Weight: ? 234 lb 6 oz ? BMI ? 36.7 ? BP ? 126/84 H ? Intake Visit Reasons:?38 WK OB Blocker And Sewer Required: No Is patient in pain?: No Allergies No Known Allergies Allergy (Verified 06/25/22 10:58) Medications vitamin#30 30 mg iron-10 mg iron-folic acid 1 mg-omg3 capsule 30 cap PO DAILY 12/22/19 [History Confirmed 06/25/22] Last Menstrual Period: 10/01/21 Zika: Zika virus screening: Negative : No PFSH PFSH Medical History? No significant medical problems Surgical History? Hx of section Family History? Grandmother Breast cancer Social History? adopted:? No household members:? significant other and children housing:? house number of children:? 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 No pets and animals:? No history of recent travel:? No sexually active:? Yes Smoking Status:? Former smoker second hand exposure:? No alcohol intake:? former details:? socially well-balanced diet:? about half the time caffeine:? No what type of physical activity do you participate in:? none kamran/pentecostal:? None seatbelt use:? always do you feel safe at home:? 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 ? ? 2 ? Elective abortions ? Hx Para ? ? ? 1 ? Spontaneous abortions ? Hx # Term Pregnancies ? Ectopic pregnancies ? Hx # Pregnancies ? Multiple births ? # of living children ? ? ? 1 Past Pregnancies Del. Date Name GA/Weeks Outcome Route Bth Weight Gen Labor Lgth Anesthesia Del Locatn Provider FOB 07/01/20 Jony 41 live - full term C- section ? Male ? epidural [facility] ? Delivery Date: 07/01/20? Last Updated by: Amanda Pereira ? ? ? NRFHT at 6cm HPI 38 WK OB Details: VALERIANO JEAN is a 21 year old who presents for routine OB visit. OB Visit RYAN Calculator ? Estimated Delivery Date Method Current WG Current Estimate 07/08/22 LMP (Certain) 38w 1d Expected Delivery Route/Plan RLTCS Specific Issue/Plans Covid status: discussed Flu vaccine: recommended Tdap vaccine: given Rhogam: na LARC form signed: declined movement and labor precautions reviewed. Problem list reviewed and updated with the most current plan of care details and appropriate orders placed.? Relevant counseling for the gestational age provided. Continue routine care and follow up unless otherwise noted in visit notes/problem list details Initial Weight:?Not Recorded Date -?-?-?-?-?-?-?-?-?-?-?-?- EGA Weight BP Urine Prot -?-?-?-?-?-?-?-?-?-?-?-?- Glucose FHR FuHt Pres Dilation -?-?-?-?-?-?-?-?-?-?-?-?- Effaced St Visit Note 11/30/21-?-?-?-?-?-?-?-?-?-?-?-?- 8w 4d 160 lb 112/68 -?-?-?-?-?-?-?-?-?-?-?-?- ? 160 ? ? -?-?-?-?-?-?-?-?-?-?-?-?- ? ? Sm- Crl cons 2 cm 12/27/21-?-?-?-?-?-?-?-?-?-?-?-?- 12w 3d 163 lb 4 oz 116/78 -?-?-?-?-?-?-?-?-?-?-?-?- ? 160 ? ? -?-?-?-?-?-?-?-?-?-?-?-?- ? ? LC- no vb/cramping. doing well. declines AFP. ultrasound ordered 01/23/22-?-?-?-?-?-?-?-?-?-?-?-?- 16w 2d 174 lb 7 oz174 lb 7 oz 118/14804/72 Nega tive -?-?-?-?-?-?-?-?-?-?-?-?- Negative 148 ? ? -?-?-?-?-?-?-?-?-?-?-?-?- ? ? MH-No VB, cramping. Feels well. 02/21/22-?-?-?-?-?-?-?-?-?-?-?-?- 20w 3d 187 lb 129/73 Negative -?-?-?-?-?-?-?-?-?-?-?-?- Negative 135 20 ? -?-?-?-?-?-?-?-?-?-?-?-?- ? ? JV- anatomy ultrasound reviewed. has a 5 cm simple ovarian cyst. luzma will remove at time of section. pt wants to have rpt section on the saturday of her 39th week. 03/21/22-?-?-?-?-?-?-?-?-?-?-?-?- 24w 3d 196 lb 2 oz 121/78 Negative -?-?-?-?-?-?-?-?-?-?-?-?- Negative 146 ? ? -?-?-?-?-?-?-?-?-?-?-?-?- ? ? MH-No vB, LOF. Good FM. Denies concerns 04/16/22-?-?-?-?-?-?-?-?-?-?-?-?- 28w 1d 212 lb 117/66 -?-?-?-?-?-?-?-?-?-?-?-?- ? 145 28 ? -?-?-?-?-?-?-?-?-?-?-?-?- ? ? SM- no vb lof good fm no regular ctx cbc gct today, cs scheduled 04/30/22-?-?-?-?-?-?-?-?-?-?-?-?- 30w 1d 215 lb 8 oz 108/72 Negative -?-?-?-?-?-?-?-?--?-?-?-?- Negative 140 31 ? -?-?-?-?-?-?-?-?-?-?-?-?- ? ? SM- no vb lof good fm n oregular ctx 05/14/22-?-?-?-?-?-?-?-?-?-?-?-?- 32w 1d 226 lb 117/88 Negative -?-?-?-?-?-?-?-?-?-?-?-?- Negative 130 33 ? -?-?-?-?-?-?-?-?-?-?-?-?- ? ? SM- no vb lof good fm n oregular ctx 05/30/22-?-?-?-?-?-?-?-?-?-?-?-?- 34w 3d 225 lb 125/82 Negative -?-?-?-?-?-?-?-?-?-?-?-?- Negative 135 34 ? -?-?-?-?-?-?-?-?-?-?-?-?- ? ? JV- pt was on L&D last night. still having headaches relieved by caffeine and tyelnol. PIH work up was neg.? no other signs/symptoms of PIH 06/11/22-?-?-?-?-?-?-?-?-?-?-?-?- 36w 1d 228 lb 8 oz 106/73 Negative -?-?-?-?-?-?-?-?-?-?-?-?- Negative 140 36 ? -?-?-?-?-?-?-?-?-?-?-?-?- ? ? SM- no vb lof good fm n oregular ctx co pelvic pressure.? gbs done 06/18/22-?-?-?-?-?-?-?-?-?-?-?-?- 37w 1d 232 lb 114/74 -?-?-?-?-?-?-?-?-?-?-?-?- ? 140 37 ? -?-?-?-?-?-?-?-?-?-?-?-?- ? ? SM- no vb lof good fm no regular ctx 06/25/22-?-?-?-?-?-?-?-?-?-?-?-?- 38w 1d 234 lb 6 oz 126/84 -?-?-?-?-?-?-?-?-?-?-?-?- ? 140 38 ? -?-?-?-?-?-?-?-?-?-?-?-?- ? ? SM- no vb lof good fm no regular ctx ACOG First Trimester First Trimester: Desire for , Alcohol, Tobacco Cessation, Illicit/Recreational Drug/Substance Use, Intimate Partner Violence, Barriers to care, Unstable Housing, Communication Barriers, Environmental/Work Hazards, Anticipated Course of Care, Toxoplasmosis Precations, Use of Any medications, Sexual activity, Exercise, Dental Care, Sauna/Hot tub use, Seat Belt use, Childbirth classes/Hospital facilities, Travel, Indications for Ultrasound and Screening for Aneuploidy; Discussed Second Trimester Second Trimester: Signs and Symptoms of Labor, Selecting a care provider, Reproductive Life Planning & Contreception, Care Planning, Depression/Anxiety and Intimate Partner Violence; Discussed Tobacco Cessation Third Trimester Third Trimester: Pain Management Plans, Labor support person(s), Immediate Larc, Movement Monitoring, Signs and Symptoms of Preeclampsia and [employer] [facility] Diagnostics Diagnostics: ?? ? Glucose 1 Hr 50 gm 86 mg/dL (70-140) ?? ? HIV 1&2 Antibody Non-Reactive? (Nonreactive) ?? ? Hgb 11.6 g/dL (12.0-15.0)? L ?? ? Hct 35.6 % (37-47)? L Details: HIV: Urine Culture: Sequential Screen: NIPT Screen: ROS Const Reports system reviewed and no additional complaints, except as documented Card Reports system reviewed and no additional complaints, except as documented Resp Reports system reviewed and no additional complaints, except as documented GI Reports system reviewed and no additional complaints, except as documented and Reports nausea Reports system reviewed and no additional complaints, except as documented Musc Reports system reviewed and no additional complaints, except as documented Exam Const General: cooperative, healthy appearing, comfortable and anxious [facility] Head: normal to inspection Nose: external nose normal Face and sinus: normal facial exam Neck Neck: normal visual inspection, full ROM and no lymphadenopathy Thyroid: thyroid normal Chest Chest palpation & inspection: normal inspection of the chest Resp Effort & Inspection: normal respiratory effort GI Inspection: normal to inspection Palpation: soft and other (gravid uterus) Other: infant vertex and appropriate size for gestational age Other: Cervical Exam: Extrem General: pedal edema Coding Level of Care Code OB Routine Diagnoses Ovarian cyst? N83.209 History of delivery? Z98.891 Supervision of high risk , antepartum? O09.90 ? Z3A.38 ? ? ? Weeks of gestation: 38 weeks Marijuana use? F12.90 Assessment and Plan Assessment and Plan (1) Ovarian cyst: ?Status:?Acute ?Comment: 5 x 5 x 4.5 cm on anatomy scan. pt plans for rpt section, will address at that time. torsion precautions discussed. (2) History of delivery: ?Status:?Acute ?Comment: NRFHTs at 6 cm.? RLTCS and ovarian cystectomy scheduled 07/02 @ 7:10 with (3) Supervision of high risk , antepartum: ?Status:?Acute ?Comment: [id number] RYAN 07/08/22 girl Joan Gordon) (4) : ?Status:?Acute ?Qualifiers: ?Weeks of gestation:?38 weeks? Qualified Code(s):?Z3A.38 - 38 weeks gestation of ?Comment: GBS Negative, NIPT low risk, carrier neg. . nl anatomy (5) Marijuana use: ?Status:?Acute ?Comment: encouraged cessation, needs random tox(neg 12/21), 11/21/21 Pt states she is no longer smoking marijuana. UPDATE- I have seen the patient and performed any clinically relevant updates to the history and physical exam. Heaven Will MD
[2022-07-02] MEDS: Lactated Ringers 1,000 ML 999 ML IV (05:45)
[2022-07-02 06:23] LABS: Absolute Lymphocyte Count 1.61 X10^3/uL (0.83-4.51); Absolute Neutrophil Count 7.5 X10^3/uL (2.0-7.7); Basophil# 0.04 X10^3/uL; Basophil% 0.4 % (0-1); Eosinophil# 0.13 X10^3/uL; Eosinophils% 1.3 % (0-5); Hematocrit 34.9 % (37-47); Hemoglobin 11.6 g/dL (12.0-15.0); Lymphocyte # 1.61 X10^3/ul (0.83-4.51); Lymphocyte % 16.3 % (19-41); Mean Corp Hgb Conc 33.2 g/dL (32-36); Mean Corpuscular Hgb 31.1 pg (27.0-32.0); Mean Corpuscular Volume 93.6 fL (81-99); Mean Platelet Vol. 10.4 fl (6.2-12.0); Monocyte# 0.63 X10^3/uL; Monocyte% 6.4 % (0-10); NRBC Flagged by Analyzer 0 % (0-5); Neutrophil # 7.45 X10^3/uL (2.7-7.7); Neutrophil % 75.3 % (47-70); Platelet Count 253 K/mm3 (150-450); RBC Distribution Width CV 12.7 % (11.6-14.6); RBC Distribution Width SD 43.6 fl (35.1-43.9); Red Blood Count 3.73 M/mm3 (4.2-5.4); White Blood Count 9.9 K/mm3 (4.4-11.0)
[2022-07-02] MEDS: Lactated Ringers 1,000 ML 150 ML IV (06:51)
[2022-07-02] MEDS: Acetaminophen 500 MG Tablet 1000 MG PO ×3 (06:52→19:09)
[2022-07-02] MEDS: Sodium Citrate/Citric Acid 30 ML UDC PO (06:58)
[2022-07-02] MEDS: Cefazolin 2 GM in 0.9% Normal Saline 100 ML IV (07:13)
--- NOTE | 2022-07-02 07:18 | OP.PCM_ITS ---
Assessment & Plan (1) Marijuana use: COMMENT: encouraged cessation, needs random tox(neg 12/21), 11/21/21 Pt states she is no longer smoking marijuana. (2) : QUALIFIERS: Weeks of gestation: 38 weeks Qualified Code(s): Z3A.38 - 38 weeks gestation of COMMENT: GBS Negative, NIPT low risk, carrier neg. . nl anatomy (3) Supervision of high risk , antepartum: COMMENT: [id number] RYAN 07/08/22 yokasta ALMODOVAR Jony Milian (NISHI - Sammy) (4) History of delivery: COMMENT: NRFHTs at 6 cm. RLTCS and ovarian cystectomy scheduled 07/02 @ 7:10 with SM (5) Ovarian cyst: COMMENT: 5 x 5 x 4.5 cm on anatomy scan. pt plans for rpt section, will address at that time. torsion precautions discussed. (6) delivery delivered: COMMENT: SM RLTCS ovarian cystectomy girl Joan 39 Maternal Data Information RYAN Calculator Estimated Delivery Date Method Current WG Current Estimate 07/08/22 LMP (Certain) 39w 1d Final RYAN Source: LMP Details Operative Information Date of Procedure: 07/02/22 Pre-Operative Diagnosis: Previous ovarian cyst Post-Operative Diagnosis: same Indications for : Repeat Elective (ovarian cystectomy) Indications Narrative: Surgeon: Heaven Will MD Classification: Scheduled Procedure Type: low transverse (ovarian cystectomy) Type of Anesthesia: Spinal Special Medications: none Antibiotic Given: Ancef 2 grams IV x1 Drain: Camacho to straight drain Fluids Replaced: crystalloid Findings Description of Procedure: The patient is a at 39 weeks presented for repeat . Spinal anesthesia was placed without difficulty. Camacho catheter was placed. The patient was placed in the dorsal supine position with leftward tilt. Patient was prepped and draped in the normal sterile fashion. Pfannenstiel skin incision was made with the scalpel and carried through to the underlying layer of fascia with the scalpel. Fascia was nicked in the midline and the incision extended laterally. The rectus bellies were dissected off superiorly and inferiorly with out complication both sharply and bluntly. The peritoneum was entered digitally. The incision was stretched and a low transverse uterine incision was made with the scalpel. The infant's head was delivered atraumatically followed by the anterior and posterior shoulders without complication the rest of the infant delivered. The cord was clamped and cut and the infant was handed off to awaiting nurse. The placenta was delivered spontaneously immediately following and was noted to be intact and have a three- vessel cord. The uterus was exteriorized cleared of all clots and debris, and the incision was closed in a single layer closure using #1 Monocryl. right fallopian tube elevated off the 5 cm cyst attached to the right ovary and the tube was dissected off sharply and with the ligasure, keeping the fimbria intact and with integrity. cyst dissected out of mesosalpinx and disconnecte from the rest of the ovary using the ligasure. excellent hemostasis noted and kassie applied to the ovary. The uterus was returned to the maternal abdomen and gutters were cleared of all clots and debris. kassie applied to the uterine incision. The peritoneum was closed with 3-0 Monocryl in a running fashion. Fascia was closed with 0 PDS in a running fashion. Subcutaneous tissue was copiously irrigated and the skin was closed with 3-0 Monocryl in a subcuticular fashion. Mepilex dressing was applied without complication. Patient was taken to recovery in stable condition. It was discussed with the patient that based on the clinical information obtained during this encounter, combined with her history, at this time I would recommend repeat cesareans for future deliveries if further pregnancies are desired. Amniotic Membrane Rupture Type: Artificial Amniotic Fluid Description: Clear Placenta Disposition: [facility] Cord Vessel Description: 3 Vessels Delayed Cord Clamping: Yes Complications Risks of Surgery Discussed w/Patient: Bleeding, Infection, Need for Future C- Sections and Injury to surrounding structure(s) including bowel and bladder Vaginal Delivery Complication Complications: None Admit VTE Documentation VTE Present on Admission: No VTE Mechan Device Prophylaxis: SCD's Multi Select Codes Urinary/Genital Urinary/Genital CPT Codes: 24934 Ovarian cystectomy laparotomy (at time of c section) and 32804 delivery+ Care([facility])
--- NOTE | 2022-07-02 07:23 | DCINST_ITS ---
Discharge Instructions Diet Discharge Diet: No restrictions Activity Discharge Activity: Return to Normal Activity, May Drive (when pain free and off narcotic pain meds), May Shower and May Take a Tub Bath (in 4 weeks) May resume sexual activity in: 6 weeks Weight Bearing Status: Full weight bearing Lifting Restrictions: under 30 lbs for 6 weeks Dressing / Incision Call your doctor if your incision/area has: Continuous Slow Oozing, Sudden Increased Bleeding, Increased Pain/ Swelling, Increased Redness, Foul Smelling Discharge and - Call your doctor if you observe: Fever of 101 or Higher, Using more than 1 pad per hour, Shortness of breath, Chest pain and Uncontrolled pain Suture Line Care: Avoid Pulling/Pushing and Avoid Pinching/Bending Change Dressing in: 1 week (leave open to air after removed) Remove Dressing in: 1 week (if present) Cleanse incision/area with: Soap & Water and Keep Dressing Clean & Dry Follow Up Care Please Follow Up With: Heaven Will MD When: Call to make an appointment with your doctor for a postop visit in 2 and 6 weeks. Test Results: Test results from this visit will be discussed in further detail at your follow- up appointment, if applicable. Discharge Plan Admission Admit Date/Time: 07/02/22 04:55 Attending Provider: Heaven Will Primary Care Provider: Kuldeep Ngo Discharge Orders/Prescriptions Prescriptions: New oxycodone-acetaminophen [Percocet] 5-325 mg tablet 1 tab PO Q6H PRN (Reason: pain) 7 Days Qty: 20 0RF naproxen [naproxen] 500 mg tablet 500 mg PO BID PRN PRN (Reason: Pain) Qty: 30 1RF No Action vitamin#30 30 mg iron-10 mg iron-folic acid 1 mg-omg3 capsule 30 mg iron-10 mg iron-1 mg capsule 30 cap PO DAILY Referrals / Follow Up: Kuldeep Ngo MD [Primary Care Provider] - Disposition Disposition (needs filled in before D/C Order can be placed): Home, Self Care
[2022-07-02 07:28] LABS: Amphetamine Urine VISTA NEGATIVE (<1000 ng/mL); Barbiturate Urine VISTA NEGATIVE (< 200 ng/mL); Benzodiazepine Urine VISTA NEGATIVE (< 200 ng/mL); Cocaine Urine VISTA NEGATIVE (< 300 ng/mL); Ecstacy Urine VISTA NEGATIVE (< 500 ng/mL); Methadone Urine VISTA NEGATIVE (< 300 ng/mL); PCP Urine VISTA NEGATIVE (< 25 ng/mL); THC Urine VISTA NEGATIVE (< 50 ng/mL); Vista UDS pH Range 6
[2022-07-02 08:09] LABS: Syphilis Antibodies Non-reactive
[2022-07-02] MEDS: Oxytocin 15 Units/NS 250ml 15 UNITS/250 ML IV.SOLN 83 UNITS IV (08:33)
[2022-07-02] MEDS: Ketorolac 30 MG/ML Syringe IV ×3 (08:57→20:48)
--- NOTE | 2022-07-02 09:04 | OV_PTH ---
PATIENT: VALERIANO JEAN LOC: [facility] U#:[id number] AGE/SX: 21/F ROOM: WP006 RE07/02/[address]: Dr. Heaven Will MD : 2000 BED: 1 DIS: 07/03/2022 SPEC #: [id number] RECD: 07/02/22 10:29 STATUS: VETO JARETT #: [id number] CHAYA: 07/02/22 09:[address]: Heaven Will DEPT: SURGICAL PATHOLOGY RECD BY: Kathleen Sheldon ENTERED: 07/02/22 10:29 SP TYPE: OVARY OTHR DR: Dr. Kuldeep Ngo MD Tissues: OVARIAN CYST Procedures: Surgery Specimen Level V HEADER OPERATION: Cystectomy PRE-OP DIAGNOSIS: Right ovarian cyst TISSUE SUBMITTED: Right ovarian cyst MICROSCOPIC DIAGNOSIS Right ovarian cyst, cystectomy: Consistent with serous cystadenoma. Ovary with benign follicular cysts. AM:dariel 07/03/2022 MICROSCOPIC DESCRIPTION Slides are reviewed. GROSS DESCRIPTION Received in fixative is one container labeled with the patient's name and designated right ovarian cyst. The specimen consists of a foster, mildly congested cyst weighing 78 gm and measuring 7.5 x 6.0 x 4.5 cm. The external surface is smooth without any papillation and it is inked black. The cyst contains clear fluid. The inner cyst wall is smooth without any papillation. A solid area is noted at one edge of the cyst, may represent portion of the ovary measuring 2.0 cm in greatest dimension. The cyst wall measures 0.1 cm in thickness. Business Analytics Director sections are submitted in three cassettes. Cassette 3 contains the solid area of the specimen. / SJ:dariel 07/02/2022 TC:1 [facility]: [id number]
[2022-07-02 09:18] LABS: Pathology Specimen OB SEE PATHOLOGY REPORT
[2022-07-02] MEDS: 0.9% Saline Lock 10 ML Syringe IV ×2 (13:25→20:48)
[2022-07-02] MEDS: Enoxaparin 40 MG/0.4 ML Syringe SC (19:09)
[2022-07-03] VITALS: BP 100/43; PULSE 80; RESP 18; TEMP 36.2
[2022-07-03] MEDS: Acetaminophen 500 MG Tablet 1000 MG PO ×2 (00:19→06:39)
[2022-07-03] MEDS: Ketorolac 30 MG/ML Syringe IV (03:26)
[2022-07-03] MEDS: 0.9% Saline Lock 10 ML Syringe IV (03:26)
[2022-07-03 03:29] VITALS: BP 96/56; PULSE 84; RESP 16; TEMP 36.4
[2022-07-03 06:07] LABS: Hemoglobin 10.8 g/dL (12.0-15.0); Mean Corp Hgb Conc 31.8 g/dL (32-36); Mean Corpuscular Hgb 30.6 pg (27.0-32.0); Mean Corpuscular Volume 96.3 fL (81-99); Mean Platelet Vol. 10.6 fl (6.2-12.0); Platelet Count 219 K/mm3 (150-450); RBC Distribution Width CV 13.2 % (11.6-14.6); RBC Distribution Width SD 46.5 fl (35.1-43.9); Red Blood Count 3.53 M/mm3 (4.2-5.4)
--- NOTE | 2022-07-03 07:31 | PCM.PN.OB ---
Subjective Subjective Patient doing well without complaints. Tolerating PO. Ambulating and voiding without difficulty. Feeding well. Denies chest pain, shortness of breath, calf pain/swelling, fevers, chills, lightheadedness. Objective Data Objective Data Vital Signs: Vital Signs Temp Pulse Resp BP Pulse Ox O2 Del Method 97.6 F L 84 16 96/56 L 98 Room Air 07/03/22 03:29 07/03/22 03:29 07/03/22 03:29 07/03/22 03:29 07/02/22 18:35 07/03/22 03:29 Oxygen Delivery Method Room Air Weight: 235 lb 7.259 oz Body Mass Index (BMI) 36.8 Intake & Output: Intake and Output for Last 24 Hours 07/01/22 07/02/22 07/03/22 23:59 23:59 23:59 Intake Total 3032.5 / 3032.5 Output Total 2075 / 2075 300 / 300 Balance 957.5 / 957.5 -300 / -300 Lab / Micro Data Attestation: I reviewed the patient's lab results. Result Diagrams: 07/03/22 05:40 Labs: Laboratory Results - last 24 hr 07/02/22 05:45: Blood Type A POSITIVE, Antibody Screen NEGATIVE 07/02/22 05:45: Syphilis Total Ab Non-reactive 07/03/22 05:40: WBC 10.0, RBC 3.53 L, Hgb 10.8 L, Hct 34.0 L, MCV 96.3, MCH 30.6, MCHC 31.8 L, RDW Std Deviation 46.5 H, RDW Coeff of Janay 13.2, Plt Count 219, MPV 10.6 ROS Constitutional Constitutional: Reports systems reviewed and no addt'l complaints, except as documented; Denies anorexia or headache(s) Cardiovascular Cardiovascular: Reports systems reviewed and no addt'l complaints, except as documented; Denies dizziness, dyspnea, nausea or tachypnea Respiratory/Chest Respiratory/Chest: Reports systems reviewed and no addt'l complaints, except as documented; Denies cough, dyspnea, shortness of breath at rest or tachypnea Gastrointestinal Gastrointestinal: Reports systems reviewed and no addt'l complaints, except as documented; Denies abdominal pain, constipation or nausea Genitourinary Genitourinary: Reports systems reviewed and no addt'l complaints, except as documented; Denies burning urination, difficulty urinating, dysuria, urinary frequency or urinary incontinence Musculoskeletal Musculoskeletal: Reports systems reviewed and no addt'l complaints, except as documented Integumentary Integumentary: Reports systems reviewed and no addt'l complaints, except as documented Neurologic Neurologic: Reports systems reviewed and no addt'l complaints, except as documented; Denies abnormal speech, dizziness or headache(s) Psychiatric Psychiatric: Reports systems reviewed and no addt'l complaints, except as documented Endocrine Endocrinology: Reports systems reviewed and no addt'l complaints, except as documented Hematologic/Lymphatic Hematologic/Lymphatic: Reports systems reviewed and no addt'l complaints, except as documented Physical Exam Const alert, oriented x3 and no apparent distress Neck full ROM Resp normal respiratory effort, normal air movement and no retractions Effort and Inspection: able to speak in complete sentences and symmetric chest movement GI soft to palpation and non-distended Inspection: incision other (dressing clean and dry); Negative for abdominal distention Bladder / Kidney Exam: bladder normal to palpation Uterus Palpation: uterus fundus firm (U1) Extremity normal to inspection and full ROM Psych mental status grossly normal, thought process normal and cooperative Assessment & Plan (1) delivery delivered: COMMENT: RLTCS ovarian cystectomy girl Joan 38 PLAN: s/p LTCS PPD # 1 1. routine post care 2. formula feeding- support given 3. rh positive 4. rubella immune 5. Discharge home Charges/Coding Multi Select Codes Urinary/Genital Urinary/Genital CPT Codes: No Charge
--- NOTE | 2022-07-03 07:33 | DCINST_ITS ---
Discharge Instructions Diet Discharge Diet: No restrictions Activity May resume sexual activity in: 6 weeks Weight Bearing Status: Full weight bearing Dressing / Incision Call your doctor if your incision/area has: Continuous Slow Oozing, Sudden Increased Bleeding, Increased Pain/ Swelling, Increased Redness, Foul Smelling Discharge and - Call your doctor if you observe: Fever of 101 or Higher, Using more than 1 pad per hour, Shortness of breath, Chest pain and Uncontrolled pain Suture Line Care: Avoid Pulling/Pushing and Avoid Pinching/Bending Cleanse incision/area with: Soap & Water and Keep Dressing Clean & Dry Follow Up Care Please Follow Up With: Heaven Will MD Test Results: Test results from this visit will be discussed in further detail at your follow- up appointment, if applicable. Discharge Plan Admission Admit Date/Time: 07/02/22 04:55 Attending Provider: Heaven Will Primary Care Provider: Kuldeep Ngo Discharge Orders/Prescriptions Prescriptions: New oxycodone-acetaminophen [Percocet] 5-325 mg tablet 1 tab PO Q6H PRN (Reason: pain) 7 Days Qty: 20 0RF naproxen [naproxen] 500 mg tablet 500 mg PO BID PRN PRN (Reason: Pain) Qty: 30 1RF No Action vitamin#30 30 mg iron-10 mg iron-folic acid 1 mg-omg3 capsule 30 mg iron-10 mg iron-1 mg capsule 30 cap PO DAILY Referrals / Follow Up: Kuldeep Ngo MD [Primary Care Provider] - Disposition Disposition (needs filled in before D/C Order can be placed): Home, Self Care
[2022-07-03 08:00] VITALS: BP 109/61; PULSE 84; RESP 15; TEMP 36.2
[2022-07-03] MEDS: Naproxen 500 MG Tablet PO (10:24)
[2022-07-03] MEDS: Enoxaparin 40 MG/0.4 ML Syringe SC (10:24)
[2022-07-03] MEDS: Senna/Docusate Sodium 1 Tablet PO (10:24)
[2022-07-03 12:45] VITALS: BP 138/77; PULSE 70; RESP 18; TEMP 36.3; O2SAT 98
== END 2022-07-03 13:40 | disposition home or self-care (01) | DRG 540 ==
PROVIDERS: Admitting Provider Obstetrics & Gynecology; PCP Family Medicine; Visit Provider Obstetrics & Gynecology
PROC: 10D00Z1 Extraction of Products of Conception, Low, Open Approach (ICD-10-PCS; CPT 59514; principal; 2022-07-02 06:55)
DX: O34.219 Maternal care for unspecified type scar from previous cesarean delivery (principal); O99.324 Drug use complicating childbirth; F12.90 Cannabis use, unspecified, uncomplicated; Z37.0 Single live birth; Z87.891 Personal history of nicotine dependence; Z3A.38 38 weeks gestation of pregnancy; O34.83 Maternal care for other abnormalities of pelvic organs, third trimester; N83.201 Unspecified ovarian cyst, right side
CPT/HCPCS: 59050; 80307; 85025; 85027; 86780; 86850; 86900; 86901; 88305; 88307; 99221; 99252; J7120; A4216; G0378; G0463